=== PATIENT | male | born 1940 | race Two or more races ===

== ENCOUNTER 2017-08-30 19:07 | Emergency (ER) | payer OTHER ==
[~2017-08-30] VITALS: Ht 167.6 cm; Wt 72.6 kg
== END 2017-08-31 02:01 | disposition expired ==
LOC: EDBD 19:07 → ER 19:11
DX: I46.9 Cardiac arrest, cause unspecified (principal); E11.9 Type 2 diabetes mellitus without complications; I10 Essential (primary) hypertension; J45.909 Unspecified asthma, uncomplicated; R41.82 Altered mental status, unspecified
CPT/HCPCS: 92950